=== PATIENT | female | born 1995 | race Caucasian/White ===

== ENCOUNTER 2019-05-31 06:00 | Outpatient (RCR) | payer SELFPAY | END 2019-06-30 00:01 | LOC: SPT 06:00 | PROVIDERS: Family Provider Nurse Practitioner Family; Visit Provider Licensed Practical Nurse | DX: M51.17 Intervertebral disc disorders with radiculopathy, lumbosacral region (principal) | CPT/HCPCS: 97110 ==

== ENCOUNTER → 2020-01-14 12:01 | Outpatient (BNVA) | payer SELFPAY | PROVIDERS: Family Provider Nurse Practitioner Family; Visit Provider Nurse Practitioner Women's Health | DX: N92.6 Irregular menstruation, unspecified (principal); Z12.4 Encounter for screening for malignant neoplasm of cervix; Z11.3 Encounter for screening for infections with a predominantly sexual mode of transmission; N97.9 Female infertility, unspecified | CPT/HCPCS: 84146 ==

== ENCOUNTER → 2020-01-27 08:10 | Outpatient (BNVA) | payer SELFPAY | PROVIDERS: Family Provider Nurse Practitioner Family; Visit Provider Nurse Practitioner Women's Health | DX: N92.6 Irregular menstruation, unspecified (principal) | CPT/HCPCS: 76830 ==

== ENCOUNTER → 2020-05-09 13:26 | Outpatient (BNVA) | payer SELFPAY | PROVIDERS: Family Provider Nurse Practitioner Family; PCP Nurse Practitioner; Visit Provider Nurse Practitioner Women's Health | DX: E28.2 Polycystic ovarian syndrome (principal) | CPT/HCPCS: 84144 ==

== ENCOUNTER → 2020-06-03 10:37 | Outpatient (BNVA) | payer SELFPAY | PROVIDERS: Family Provider Nurse Practitioner Family; PCP Nurse Practitioner; Visit Provider Nurse Practitioner Family | DX: Z20.828 Contact with and (suspected) exposure to other viral communicable diseases (principal); J06.9 Acute upper respiratory infection, unspecified | CPT/HCPCS: 87635 ==

== ENCOUNTER → 2020-06-08 08:02 | Outpatient (BNVA) | payer SELFPAY | PROVIDERS: Family Provider Nurse Practitioner Family; PCP Nurse Practitioner; Visit Provider Nurse Practitioner Women's Health | DX: E28.2 Polycystic ovarian syndrome (principal) | CPT/HCPCS: 84144 ==

== ENCOUNTER → 2020-07-08 08:48 | Outpatient (BNVA) | payer SELFPAY | PROVIDERS: Family Provider Nurse Practitioner Family; PCP Nurse Practitioner; Visit Provider Nurse Practitioner Women's Health | DX: E28.2 Polycystic ovarian syndrome (principal) | CPT/HCPCS: 84144 ==

== ENCOUNTER 2020-07-28 09:25 | Outpatient (CLI) | payer SELFPAY ==
--- NOTE | 2020-07-28 10:00 | FL_ITS ---
WS: [id number] HYSTEROSALPINGOGRAM The cervical opening was cannulated by the studio technician video operator. Then under fluoroscopic guidance, water-solu ble contrast was injected in a retrograde fashion. CLINICAL INFORMATION: E28.2 - Polycystic ovarian syndrome COMPARISON: None. FINDINGS: The uterus fills normally, with no evidence of contour abnormality, filling defect, septum, stricture , mass, or bicornuate configuration. The bilateral uterine tubes are normal and patent with normal sp illage of contrast into the peritoneum. FLUOROSCOPY TIME: 0.5 minutes. FL/FL hysterosalpingography [id number] IMPRESSION: Normal hysterosalpingogram with bilateral spillage into the peritoneum.
[2020-07-28] MEDS: iohexol 300 mg/mL 50 mL Btl VAGINAL (11:16)
== END 2020-07-28 09:26 | disposition home or self-care (01) ==
PROVIDERS: PCP Nurse Practitioner; Visit Provider Obstetrics & Gynecology
DX: E28.2 Polycystic ovarian syndrome (principal)
CPT/HCPCS: 74740

== ENCOUNTER → 2020-09-06 15:42 | Outpatient (BNVA) | payer SELFPAY | PROVIDERS: PCP Nurse Practitioner; Visit Provider Obstetrics & Gynecology | DX: N83.201 Unspecified ovarian cyst, right side (principal) | CPT/HCPCS: 76830 ==

== ENCOUNTER → 2020-10-12 10:50 | Outpatient (BNVA) | payer SELFPAY | PROVIDERS: PCP Nurse Practitioner; Visit Provider Obstetrics & Gynecology | DX: E28.2 Polycystic ovarian syndrome (principal) | CPT/HCPCS: 83520; 84144 ==

== ENCOUNTER → 2020-11-21 08:12 | Outpatient (BNVA) | payer OTHER, SELFPAY | PROVIDERS: PCP Nurse Practitioner; Visit Provider Obstetrics & Gynecology | DX: N97.0 Female infertility associated with anovulation (principal) | CPT/HCPCS: 84144 ==

== ENCOUNTER → 2021-01-03 08:20 | Outpatient (BNVA) | payer OTHER, SELFPAY | PROVIDERS: PCP Nurse Practitioner; Visit Provider Obstetrics & Gynecology | DX: Z32.01 Encounter for pregnancy test, result positive (principal) | CPT/HCPCS: 84702; 86850; 86900 ==

== ENCOUNTER → 2021-01-09 08:18 | Outpatient (BNVA) | payer OTHER, SELFPAY | PROVIDERS: PCP Nurse Practitioner; Visit Provider Obstetrics & Gynecology | DX: Z32.01 Encounter for pregnancy test, result positive (principal); Z20.822 Contact with and (suspected) exposure to COVID-19 | CPT/HCPCS: 84702; 87635 ==

== ENCOUNTER → 2021-01-17 08:15 | Outpatient (BNVA) | payer OTHER, MEDICAID, SELFPAY | PROVIDERS: PCP Nurse Practitioner; Visit Provider Obstetrics & Gynecology | DX: Z32.01 Encounter for pregnancy test, result positive (principal) | CPT/HCPCS: 84702 ==

== ENCOUNTER → 2021-02-28 11:30 | Outpatient (BNVA) | payer OTHER, MEDICAID, SELFPAY | PROVIDERS: PCP Nurse Practitioner; Visit Provider Obstetrics & Gynecology | DX: Z34.90 Encounter for supervision of normal pregnancy, unspecified, unspecified trimester (principal); Z87.59 Personal history of other complications of pregnancy, childbirth and the puerperium | CPT/HCPCS: 80053; 80307; 82570; 82950; 84156; 84315; 84443; 84550; 85027; 86592; 86762; 86803; 86850; 86900; 87086; 87340 ==

== ENCOUNTER → 2021-03-07 11:00 | Outpatient (BNVA) | payer OTHER, MEDICAID, SELFPAY | PROVIDERS: PCP Nurse Practitioner; Visit Provider Obstetrics & Gynecology | DX: Z34.90 Encounter for supervision of normal pregnancy, unspecified, unspecified trimester (principal) | CPT/HCPCS: 84315; 87491; 87591 ==

== ENCOUNTER → 2021-03-13 00:01 | Outpatient (BNVA) | payer OTHER, MEDICAID, SELFPAY | PROVIDERS: PCP Nurse Practitioner; Visit Provider Obstetrics & Gynecology | DX: Z34.80 Encounter for supervision of other normal pregnancy, unspecified trimester (principal) | CPT/HCPCS: 84156 ==

== ENCOUNTER → 2021-04-25 15:50 | Outpatient (BNVA) | payer OTHER, MEDICAID, SELFPAY | PROVIDERS: PCP Nurse Practitioner; Visit Provider Obstetrics & Gynecology | DX: N89.8 Other specified noninflammatory disorders of vagina (principal) | CPT/HCPCS: 87491; 87591 ==

== ENCOUNTER → 2021-05-22 00:01 | Outpatient (BNVA) | payer OTHER, MEDICAID, SELFPAY | PROVIDERS: PCP Nurse Practitioner; Visit Provider Nurse Practitioner | DX: Z20.822 Contact with and (suspected) exposure to COVID-19 (principal); B34.9 Viral infection, unspecified | CPT/HCPCS: 87426 ==

== ENCOUNTER 2021-05-31 17:44 | Outpatient (CLI) | payer OTHER, MEDICAID, SELFPAY ==
[2021-05-31 17:56] VITALS: RESP 18
[2021-05-31 17:57] VITALS: BMI 43.6
[2021-05-31 18:01] VITALS: TEMP 37.3
[2021-05-31 18:02] VITALS: BP 130/72; PULSE 92
[2021-05-31 18:17] VITALS: BP 112/61; PULSE 85
[2021-05-31 18:24] LABS: Actim Prom Negative
[2021-05-31 18:32] VITALS: BP 116/65; PULSE 89
== END 2021-05-31 18:40 | disposition home or self-care (01) ==
LOC: OPOB 17:53 → OBGYN 17:54
PROVIDERS: PCP Nurse Practitioner; Visit Provider Obstetrics & Gynecology
DX: O99.891 Other specified diseases and conditions complicating pregnancy (principal); N89.8 Other specified noninflammatory disorders of vagina
CPT/HCPCS: 84112; 84315; 87086; 99211

== ENCOUNTER 2021-06-21 09:27 | Outpatient (CLI) | payer OTHER, MEDICAID, SELFPAY ==
[2021-06-21 09:48] VITALS: TEMP 36.3
[2021-06-21 09:52] VITALS: BP 113/68; PULSE 97
[2021-06-21 10:05] VITALS: BP 107/62; PULSE 98
[2021-06-21 10:20] VITALS: BP 106/59; PULSE 88
[2021-06-21 10:25] VITALS: BP 106/59; PULSE 88
== END 2021-06-21 10:25 | disposition home or self-care (01) ==
LOC: OPOB 09:31 → OBGYN 09:32
PROVIDERS: PCP Nurse Practitioner; Visit Provider Obstetrics & Gynecology
DX: O26.899 Other specified pregnancy related conditions, unspecified trimester (principal); Z3A.00 Weeks of gestation of pregnancy not specified; R42 Dizziness and giddiness
CPT/HCPCS: 99211

== ENCOUNTER → 2021-06-26 08:27 | Outpatient (BNVA) | payer OTHER, MEDICAID, SELFPAY | PROVIDERS: PCP Nurse Practitioner; Visit Provider Obstetrics & Gynecology | DX: Z34.80 Encounter for supervision of other normal pregnancy, unspecified trimester (principal) | CPT/HCPCS: 82950; 84315; 85027 ==

== ENCOUNTER → 2021-07-10 08:23 | Outpatient (BNVA) | payer OTHER, MEDICAID, SELFPAY | PROVIDERS: PCP Nurse Practitioner; Visit Provider Obstetrics & Gynecology | DX: Z34.90 Encounter for supervision of normal pregnancy, unspecified, unspecified trimester (principal) | CPT/HCPCS: 84315; 87086 ==

== ENCOUNTER → 2021-07-31 13:27 | Outpatient (BNVA) | payer OTHER, MEDICAID, SELFPAY | PROVIDERS: PCP Nurse Practitioner; Visit Provider Obstetrics & Gynecology | DX: Z34.80 Encounter for supervision of other normal pregnancy, unspecified trimester (principal) | CPT/HCPCS: 84315; 87086 ==

== ENCOUNTER 2021-08-01 07:14 | Outpatient (CLI) | payer OTHER, MEDICAID, SELFPAY ==
[2021-08-01] VITALS (9 sets, daily range): BP systolic 91–128; BP diastolic 53–81; PULSE 85–108; RESP 16; TEMP 36.1; BMI 43.7
[2021-08-01] MEDS: ondansetron 2 mg/ML SDV 2 mL 4 MG IVP (08:12)
[2021-08-01 08:44] LABS: Add Urine Culture? Yes; Add Urine Microscopic? YES; Bacteria Urine 1+ /hpf; Bilirubin Urine Neg (Negative); Blood Urine 2+ (Negative); Glucose Urine UA Norm (Normal); Ketones Urine Negative (Negative); Leukocyte Esterase Urine 2+ (Negative); Nitrate Urine Negative (Negative); Protein Urine Neg (Negative); Urine Appearance SL Hazy (CLEAR); Urine Color Yellow (Yellow); Urobilinogen Urine 1 mg/dL (Negative); pH Urine 6.5 (5-7)
[2021-08-01] MEDS: lactated ringers 1,000 ML 999 ML IV (08:56)
[2021-08-01 10:21] LABS: Adenovirus Not Detected (NOT DETECT); Chlamydia Pneumoniae Not Detected (NOT DETECT); Coronavirus 229E,HKU1,NL63,OC4 Not Detected (NOT DETECT); Human Metapneumovirus Not Detected (NOT DETECT); Human Rhinovirus/Enterovirus Not Detected (NOT DETECT); Influenza A Not Detected (NOT DETECT); Influenza A H1 Not Detected (NOT DETECT); Influenza A H1-2009 Not Detected (NOT DETECT); Influenza A H3 Not Detected (NOT DETECT); Influenza B Not Detected (NOT DETECT); Mycoplasma Pneumoniae Not Detected (NOT DETECT); Parainfluenza Virus Type 1 Not Detected (NOT DETECT); Parainfluenza Virus Type 2 Not Detected (NOT DETECT); Parainfluenza Virus Type 3 Not Detected (NOT DETECT); Parainfluenza Virus Type 4 Not Detected (NOT DETECT); Respiratory Syncytial Virus A Not Detected (NOT DETECT); Respiratory Syncytial Virus B Not Detected (NOT DETECT); SARS-COV-2 Detected (NOT DETECT)
--- NOTE | 2021-08-01 10:28 | PC.NURSE ---
Called prescription to [facility] pharmacy to Matthew at this time.
--- NOTE | 2021-08-01 10:41 | PC.NURSE ---
Called Lauren and let her know that she was covid positive.
== END 2021-08-01 10:20 | disposition home or self-care (01) ==
LOC: OPOB 07:21 → OBGYN 07:27
PROVIDERS: PCP Nurse Practitioner; Visit Provider Obstetrics & Gynecology
DX: O21.9 Vomiting of pregnancy, unspecified (principal); Z3A.00 Weeks of gestation of pregnancy not specified; R10.9 Unspecified abdominal pain
CPT/HCPCS: 59025; 81001; 87086; 87635; 99211; J2405

== ENCOUNTER → 2021-08-08 11:35 | Outpatient (BNVA) | payer OTHER, MEDICAID, SELFPAY | PROVIDERS: PCP Nurse Practitioner; Visit Provider Nurse Practitioner Women's Health | DX: Z34.80 Encounter for supervision of other normal pregnancy, unspecified trimester (principal) | CPT/HCPCS: 84315; 87086; 87491; 87591; 87661 ==

== ENCOUNTER 2021-08-22 13:30 | Outpatient (CLI) | payer OTHER, MEDICAID, SELFPAY ==
[2021-08-22] VITALS (9 sets, daily range): BP systolic 99–133; BP diastolic 62–80; PULSE 86–111; RESP 16–17; BMI 43.2
[2021-08-22] MEDS: HYDROcodone-acetaminophen 5-325 mg Tablet 1 TAB PO (14:33)
[2021-08-22] MEDS: famotidine 20 mg Tablet PO (14:33)
== END 2021-08-22 16:20 | disposition home or self-care (01) ==
LOC: OPOB 13:32 → OBGYN 13:33
PROVIDERS: PCP Nurse Practitioner; Visit Provider Obstetrics & Gynecology
DX: O26.899 Other specified pregnancy related conditions, unspecified trimester (principal); Z3A.00 Weeks of gestation of pregnancy not specified; R10.9 Unspecified abdominal pain; M54.9 Dorsalgia, unspecified
CPT/HCPCS: 59025; 99211

== ENCOUNTER → 2021-08-23 10:03 | Outpatient (BNVA) | payer OTHER, MEDICAID, SELFPAY | PROVIDERS: PCP Nurse Practitioner; Visit Provider Obstetrics & Gynecology | DX: Z34.80 Encounter for supervision of other normal pregnancy, unspecified trimester (principal) | CPT/HCPCS: 84315; 87081 ==

== ENCOUNTER → 2021-08-28 10:04 | Outpatient (BNVA) | payer OTHER, MEDICAID, SELFPAY | PROVIDERS: PCP Nurse Practitioner; Visit Provider Obstetrics & Gynecology | DX: Z34.80 Encounter for supervision of other normal pregnancy, unspecified trimester (principal); Z87.59 Personal history of other complications of pregnancy, childbirth and the puerperium | CPT/HCPCS: 82570; 84156; 84315 ==

== ENCOUNTER 2021-08-30 12:57 | Outpatient (CLI) | payer OTHER, MEDICAID, SELFPAY ==
[2021-08-30] VITALS (10 sets, daily range): BP systolic 113–127; BP diastolic 74–83; PULSE 93–124; RESP 18; TEMP 36.1; O2SAT 82–98; BMI 43.6
[2021-08-30 14:31] LABS: Blood Urine Neg (Negative); Glucose Urine UA Norm (Normal); Ketones Urine Negative (Negative); Nitrate Urine Negative (Negative); Protein Urine Trace (Negative); Specific Gravity, Urine 1.025 (1.005-1.030); Urine Appearance Cloudy (CLEAR); Urine Color Dark Yellow (Yellow); pH Urine 5 (5-7)
[2021-08-30 14:32] LABS: Bacteria Urine 1+ /hpf; Bilirubin Urine 1+ (Negative); Calcium Oxalate Crystals Urine 0-4 /hpf; Leukocyte Esterase Urine 2+ (Negative); RBC Urine 25-40 /hpf (0-2); Urobilinogen Urine 4 mg/dL (Negative); WBC Urine 15-25 /hpf (0-5)
== END 2021-08-30 14:50 | disposition home or self-care (01) ==
LOC: OPOB 12:58 → OBGYN 12:59
PROVIDERS: Obstetrics & Gynecology; PCP Nurse Practitioner; Visit Provider Obstetrics & Gynecology
DX: O26.899 Other specified pregnancy related conditions, unspecified trimester (principal); Z3A.00 Weeks of gestation of pregnancy not specified; M54.9 Dorsalgia, unspecified
CPT/HCPCS: 81001

== ENCOUNTER 2021-09-01 13:45 | Inpatient (IN) | payer OTHER, MEDICAID, SELFPAY ==
[2021-09-01] VITALS (189 sets, daily range): BP systolic 95–140; BP diastolic 51–79; PULSE 74–113; RESP 16–17; O2SAT 92–100; BMI 43.9
[2021-09-01 12:00] LABS: Basophils % 0.2 %; Eosinophils # 0.1 10^3/uL (0.0-0.8); Eosinophils % 0.8 %; Hematocrit 35.8 % (37.0-47.0); Hemoglobin 11.2 g/dL (11.5-15.3); Lymphocytes # 1.7 10^3/uL (0.8-4.8); Lymphocytes % 13.4 %; Mean Corpuscular HGB Conc 31.3 g/dL (30.0-36.0); Mean Corpuscular Hemoglobin 25.3 pg (28.0-34.0); Mean Platelet Volume 12.2 fL (7.4-10.4); Monocytes # 0.7 10^3/uL (0.2-0.9); Monocytes % 5.2 %; Neutrophils # 9.94 10^3/uL (1.8-7.7); Neutrophils % 79.8 %; Nucleated Red Blood Cells % 0 %; Platelet Count 270 10^3/cmm (130-400); Red Blood Count 4.42 10^6/uL (4.1-5.3); Red Cell Distribution Width 15.4 % (12.1-15.1); White Blood Count 12.5 10^3/uL (4.0-10.0)
[2021-09-01 12:22] LABS: Alanine Aminotransferase 100 U/L (0-33); Albumin Level 3.4 g/dL (3.5-5.2); Alkaline Phosphatase 245 IU/L (35-105); Anion Gap 17.1 (5-19); Aspartate Amino Transferase 165 U/L (0-32); Blood Urea Nitrogen 7 mg/dL (6-20); Calcium 8.9 mg/dL (8.5-10.5); Carbon Dioxide 19 mmol/L (22-29); Chloride 100 mmol/L (98-107); Globulin 3.5 g/dL (1.3-4.6); Glomerular Filtration Rate 150.3 mL/min (90-130); Glucose 109 mg/dL (65-115); Osmolality Calculated 273 mOsm/kg (285-295); Potassium 4.1 mmol/L (3.5-5.1); Sodium 132 mmol/L (136-145); Total Bilirubin 0.7 mg/dL (0.15-1.2); Total Protein 6.9 g/dL (6.6-8.7)
[2021-09-01 12:27] LABS: Urine Creatinine 79 mg/dL (28-217); Urine Protein Random 18 mg/dL
[2021-09-01 12:29] LABS: UPRO/UCREAT Ratio 0.23 mg/mg CR
[2021-09-01 12:39] LABS: Blood Urine Neg (Negative); Glucose Urine UA Norm (Normal); Ketones Urine Negative (Negative); Nitrate Urine Negative (Negative); Protein Urine Neg (Negative); Urine Appearance Hazy (CLEAR); Urine Color Yellow (Yellow); pH Urine 6.5 (5-7)
[2021-09-01 12:40] LABS: Add Urine Culture? Yes; Bacteria Urine TRACE /hpf; Bilirubin Urine Neg (Negative); Leukocyte Esterase Urine 2+ (Negative); RBC Urine 0-4 /hpf (0-2); Urobilinogen Urine 1 mg/dL (Negative); WBC Urine 25-40 /hpf (0-5)
[2021-09-01] MEDS: dextrose 5%-lactated ringers 1,000 ML 125 ML IV (13:37)
[2021-09-01] MEDS: magnesium sulfate premix 4 GM/100 ML PREMIX IV (13:39)
[2021-09-01] MEDS: magnesium sulfate premix 20 GM/500 ML BAG IV ×2 (13:59→23:06)
--- NOTE | 2021-09-01 14:06 | PM.OPHPUD ---
Labor & Delivery H&P Update Date of Procedure: September 01, 2021 Date H&P Performed: 08/28/21 H&P update information: I have reviewed H&P completed within last 30 days, I have examined patient prior to procedure and Changes to prior documentation as noted here Changes to previous documentation: iup at 38 weeks. Patient presents with complaints of not feeling well and a persistent headache. Her liver enzymes were found to be high. She will be admitted for severe preeclampsia and started on magnesium sulfate. Admission Diagnosis: Related Problem List Diagnoses (1) macrosomia affecting management of mother, antepartum: (2) chromosome abnormality, antepartum: (3) History of gestational hypertension: (4) Supervision of other normal : (5) Severe preeclampsia:
[2021-09-01] MEDS: oxytocin 30 UNIT/500 ML BAG IV (14:13)
--- NOTE | 2021-09-01 16:14 | P.ANESASSM_ITS ---
Pre-Anesthetic Assessment Height/Weight: Height 1.63 m Weight 116.12 kg Pulse Resp BP Pulse Ox 84 17 121/70 100 09/01/21 16:08 09/01/21 12:33 09/01/21 15:59 09/01/21 16:08 Familial anesthetic complications: None Was Beta Mukund taken within 24 hours: N/A Was Clonidine taken within 24 hours: N/A Social No alcohol and No tobacco Exam alert, oriented x 3, clear to auscultation bilaterally and regular rate & rhythm Airway Submandibular: within normal limits Cervical ROM: within normal limits Mallampati: Class II Dentition: full History/ROS No significant history except as noted Pulmonary COVID during CV/HEM Pre E Anesthetic Plan ASA status: 2 Anesthesia: Regional (specify below) (Labor Epidural) Risk of > 500 ml blood loss (7ml/kg in children): No Medications/Allergies Home Medications Medication Instructions Recorded Confirmed Last Taken Type acetaminophen 325 mg capsule 325 mg PO QID PRN 10/21/19 08/28/21 09/01/21 09:00 History (Tylenol) aspirin 81 mg tablet,delayed 81 mg PO DAILY #90 tab 02/28/21 08/28/21 09/01/21 09:00 Rx release prenat.vits,haim,myx-nexb-ncxtn 1 tab PO DAILY 02/28/21 08/28/21 09/01/21 09:00 History ferrous sulfate 325 mg (65 mg 325 mg PO DAILY #90 tab 06/27/21 08/28/21 08/30/21 21:00 Rx iron) tablet,delayed release breast pump (Pump In Style #1 ea 07/10/21 08/28/21 Unknown Rx Advanced) promethazine 25 mg tablet 25 mg PO TID PRN #10 tab 09/01/21 Unknown Rx Allergies Allergy/AdvReac Type Severity Reaction Status Date / Time Penicillins Allergy Intermediate Swelling Verified 08/28/21 10:21 in hands and lips---can take Keflex sulfamethoxazole Allergy Intermediate swell, Verified 08/28/21 10:21 [From Bactrim] hands and lips trimethoprim [From Bactrim] Allergy Intermediate swell, Verified 08/28/21 10:21 hands and lips Current Medications Generic Name Dose Route Start Last Admin Trade Name Freq PRN Reason Stop Dose Admin Dextrose/Lactated Ringer's 1,000 mls @ 125 mls/hr 09/01/21 12:45 09/01/21 13:37 Dextrose 5%-Lactated Ringers IV 125 mls/hr .Q8H PEPE Administration Magnesium Sulfate 20 gm in 500 mls @ 50 mls/hr 09/01/21 13:30 09/01/21 13:59 Magnesium Sulfate Premix IV 50 mls/hr .Q10H PEPE Administration Oxytocin 30 unit in 500 mls @ 1 mls/hr 09/01/21 13:30 09/01/21 15:30 Pitocin IV 6 milliunit/min .Q24H PEPE 6 mls/hr Titration Protocol 1 MILLIUNIT/MIN PFS Anesthesia Medical History No pertinent past medical history Denies diabetes, asthma, hypertension, seizures, DVT/PE PMD: [place] PCOS (polycystic ovarian syndrome) Diagnosed in 2019 with irregular cycles and ultrasound. Surgical History History of cholecystectomy (2016) Laparoscopic procedure [place] [facility] [place] Rojo. Family History Father Diabetes Hyperlipidemia Hypertension Grandmother Heart disease Maternal grandmother Ovarian cancer Paternal, age at diagnosis unknown Denies family history of Colon cancer Breast cancer Uterine cancer Thyroid condition Stroke Female Reproductive History : 2 Data Anesthesia : 09/01/21 11:50 09/01/21 11:50 Short CBC 09/01/21 Range/Units 11:50 WBC 12.5 H (4.0-10.0) 10^3/uL Hgb 11.2 L (11.5-15.3) g/dL Hct 35.8 L (37.0-47.0) % MCV 81.0 (81-99) fl Plt Count 270 (130-400) 10^3/cmm Neut % (Auto) 79.8 % Neut # (Auto) 9.94 H (1.8-7.7) 10^3/uL BMP 09/01/21 11:50 Sodium 132 L Potassium 4.1 Chloride 100 Carbon Dioxide 19 L BUN 7 Creatinine 0.5 Glucose 109 Calcium 8.9 Liver Function 09/01/21 Range/Units 11:50 Total Bilirubin 0.7 (0.15-1.2) mg/dL AST 165 H (0-32) U/L ALT 100 H (0-33) U/L Alkaline Phosphatase 245 H (35-105) IU/L Albumin 3.4 L (3.5-5.2) g/dL Urine 09/01/21 Range/Units 11:50 Urine Color Yellow (Yellow) Urine Appearance Hazy A (CLEAR) Urine pH 6.5 (5-7) Ur Specific Felt 1.010 (1.005-1.030) Urine Protein Neg (Negative) Urine Glucose (UA) Norm (Normal) Urine Ketones Negative (Negative) Urine Nitrate Negative (Negative) Urine Bilirubin Neg (Negative) Ur Leukocyte Esterase 2+ H (Negative) Urine RBC 0-4 H (0-2) /hpf Urine WBC 25-40 H (0-5) /hpf Cardiac Studies: No Data to Display
[2021-09-01] MEDS: acetaminophen 325 mg Tablet 650 MG PO (17:35)
[2021-09-01 19:58] LABS: Alanine Aminotransferase 109 U/L (0-33); Albumin Level 3.7 g/dL (3.5-5.2); Alkaline Phosphatase 261 IU/L (35-105); Aspartate Amino Transferase 193 U/L (0-32); Blood Urea Nitrogen 6 mg/dL (6-20); Calcium 8.4 mg/dL (8.5-10.5); Carbon Dioxide 20 mmol/L (22-29); Chloride 98 mmol/L (98-107); Globulin 3.8 g/dL (1.3-4.6); Glomerular Filtration Rate 150.3 mL/min (90-130); Glucose 82 mg/dL (65-115); Osmolality Calculated 273 mOsm/kg (285-295); Sodium 133 mmol/L (136-145); Total Bilirubin 0.8 mg/dL (0.15-1.2); Total Protein 7.5 g/dL (6.6-8.7)
[2021-09-01 19:59] LABS: Anion Gap 18.8 (5-19)
[2021-09-01 20:00] LABS: Magnesium Level (OB Only) 4.6 mg/dL (5.0-7.5); Potassium 3.8 mmol/L (3.5-5.1)
[2021-09-01] MEDS: miSOPROStol 100 mcg tablet 25 MCG VAGINAL (23:16)
[2021-09-01] MEDS: promethazine 25 mg/mL SDV 1 mL IM (23:17)
[2021-09-01] MEDS: morphine 4 mg/mL SDV 1 mL 8 MG IM (23:17)
[2021-09-02] VITALS (269 sets, daily range): BP systolic 86–166; BP diastolic 50–89; PULSE 65–102; RESP 16–19; TEMP 36.1–36.8; O2SAT 94–100
[2021-09-02 02:48] LABS: Magnesium Level (OB Only) 6.7 mg/dL (5.0-7.5)
[2021-09-02] MEDS: miSOPROStol 100 mcg tablet 25 MCG VAGINAL ×2 (04:08→09:24)
[2021-09-02] MEDS: magnesium sulfate premix 20 GM/500 ML BAG IV ×2 (06:01→18:30)
[2021-09-02] MEDS: dextrose 5%-lactated ringers 1,000 ML 50 ML IV (08:12)
[2021-09-02 08:20] LABS: Basophils % 0.2 %; Eosinophils % 0.2 %; Hematocrit 37.5 % (37.0-47.0); Hemoglobin 11.7 g/dL (11.5-15.3); Lymphocytes # 1.4 10^3/uL (0.8-4.8); Lymphocytes % 11.3 %; Mean Corpuscular HGB Conc 31.2 g/dL (30.0-36.0); Mean Corpuscular Hemoglobin 25.1 pg (28.0-34.0); Mean Corpuscular Volume 80.3 fl (81-99); Mean Platelet Volume 11.9 fL (7.4-10.4); Monocytes # 0.5 10^3/uL (0.2-0.9); Monocytes % 4.3 %; Neutrophils # 10.34 10^3/uL (1.8-7.7); Neutrophils % 83.1 %; Nucleated Red Blood Cells % 0 %; Platelet Count 274 10^3/cmm (130-400); Red Blood Count 4.67 10^6/uL (4.1-5.3); Red Cell Distribution Width 15.6 % (12.1-15.1); White Blood Count 12.4 10^3/uL (4.0-10.0)
[2021-09-02 08:36] LABS: Magnesium Level (OB Only) 7.1 mg/dL (5.0-7.5)
[2021-09-02] MEDS: acetaminophen 325 mg Tablet 650 MG PO (13:21)
[2021-09-02] MEDS: fentaNYL 50 mcg/mL INJ 2mL 25 MCG IVP (13:48)
[2021-09-02] MEDS: lactated ringers 1,000 ML 999 ML IV (13:55)
[2021-09-02 13:56] LABS: Basophils % 0.2 %; Eosinophils % 0.3 %; Hematocrit 36.2 % (37.0-47.0); Hemoglobin 11.5 g/dL (11.5-15.3); Lymphocytes # 1.5 10^3/uL (0.8-4.8); Lymphocytes % 10.6 %; Mean Corpuscular HGB Conc 31.8 g/dL (30.0-36.0); Mean Corpuscular Hemoglobin 25.7 pg (28.0-34.0); Mean Corpuscular Volume 80.8 fl (81-99); Mean Platelet Volume 12.2 fL (7.4-10.4); Monocytes # 0.7 10^3/uL (0.2-0.9); Monocytes % 4.7 %; Neutrophils # 11.77 10^3/uL (1.8-7.7); Neutrophils % 83.4 %; Nucleated Red Blood Cells % 0 %; Platelet Count 274 10^3/cmm (130-400); Red Blood Count 4.48 10^6/uL (4.1-5.3); Red Cell Distribution Width 15.6 % (12.1-15.1); White Blood Count 14.1 10^3/uL (4.0-10.0)
[2021-09-02 14:18] LABS: Alanine Aminotransferase 147 U/L (0-33); Albumin Level 3.5 g/dL (3.5-5.2); Alkaline Phosphatase 261 IU/L (35-105); Anion Gap 18.8 (5-19); Aspartate Amino Transferase 313 U/L (0-32); Blood Urea Nitrogen 5 mg/dL (6-20); Calcium 7.3 mg/dL (8.5-10.5); Carbon Dioxide 20 mmol/L (22-29); Chloride 99 mmol/L (98-107); Globulin 3.7 g/dL (1.3-4.6); Glomerular Filtration Rate 121.8 mL/min (90-130); Glucose 118 mg/dL (65-115); Osmolality Calculated 276 mOsm/kg (285-295); Potassium 3.8 mmol/L (3.5-5.1); Sodium 134 mmol/L (136-145); Total Bilirubin 1.1 mg/dL (0.15-1.2); Total Protein 7.2 g/dL (6.6-8.7)
[2021-09-02 14:31] LABS: Magnesium Level (OB Only) 8.6 mg/dL (5.0-7.5)
[2021-09-02] MEDS: metoclopramide 5 mg/mL SDV 2 mL 10 MG IVP (14:43)
[2021-09-02] MEDS: citric acid-sodium citrate 30 mL UDC PO (14:43)
[2021-09-02] MEDS: famotidine 20 mg/2 mL INJ IVP (14:43)
--- NOTE | 2021-09-02 14:43 | P.PN_ITS ---
Subjective Subjective: The patient has had pitocin all day yesterday and three doses of cytotec overnight and today. She had AROM with clear fluid. She is having adequate contractions. she is becoming more uncomfortable and requesting an epidural. Her labs returned and her liver enzymes are now 313 and her mag level has increased from 7.1 to 8.6, in spite of decreasing the dose back down to 2 mg/hour. We discussed her getting an epidural and then evaluating in 2 hours. She would prefer to have a now. She has known macrosomia with this . She feels very ill and just wants to have this delivery over. We will proceed with . status is overall very reassuring with good variability and accelerations. Vitals/I&O/Wt Last Vital Signs Temp 97.9 F 09/02/21 13:00 Pulse 89 09/02/21 14:38 Resp 19 H 09/02/21 13:48 BP 121/76 09/02/21 14:29 Pulse Ox 97 09/02/21 14:38 09/01/21 09/02/21 09/02/21 22:59 06:59 14:59 Intake Total 1428.417 / 1589.117 667.583 / 2256.700 163.75 / 163.75 Output Total 547 / 547 463 / 1010 539 / 539 Balance 881.417 / 1042.117 204.583 / 1246.700 -375.25 / -375.25 Weight last 48 hrs Weight 256 lb Weight 256 lb Physical Exam Urinary Catheter Management: Brown: Cath Placed During This Visit: yes Reason for Continuing Indwelling Catheter: Accurate Measurement of Urinary Output in Critically Ill Patients Urinary Catheter Date of Insertion: 09/01/21 Urinary Catheter Time of Insertion: 14:35 Data : 09/02/21 13:50 09/02/21 13:50 Micro: Microbiology 09/01/21 11:50 Urine Culture - Preliminary Urine,Clean Catch Attestations Medical Necessity Statement*: she will be here over 2 midnights. Coding Level of Care Code Acute Senior Geotechnical Engineer for Nolberto Villafana
--- NOTE | 2021-09-02 16:07 | PM.OP ---
Operative Report Date of procedure: September 02, 2021 Pre-op diagnosis: failure to progress in labor, worsening severe preeclampsia Post-op diagnosis: same Post-op findings: term male in the cephalic presentation Procedure done: primary Specimens removed/disposition: placenta Surgeon: Janna Thornton Anesthesia: Other (spinal) Estimated blood loss (mL): 300 IV fluids (mL): 1,200 Urine output (mL): 100 Complications: none Findings: term male in the cephalic presentation. Normal appearing uterus, tubes and ovaries Condition: stable Disposition: floor Procedure: The patient was taken to the operating room where spinal anesthesia was administered and found to be adequate. She was prepped and draped in the normal sterile fashion in the dorsal supine position with a leftward tilt. A Pfannenstiel skin incision was made and carried down to the underlying layer of fascia. The fascia was nicked in the midline and extended laterally with the Melgar scissors. The fascia was then tented up and the rectus muscles dissected off sharply. The rectus muscles were and the peritoneum entered bluntly with the digit. The peritoneal incision was extended superiorly and inferiorly with good visualization of the bladder. The Kalia O retractor was placed. It was clear of any bowel or omentum. The bladder flap was created sharply with the Metzenbaum scissors. A low transverse uterine incision was made and carried down to the bag of water. The bag of water was ruptured and the uterine incision extended cephalocaudad. The scalp was grasped and brought through the incision. The nose and mouth were bulb suctioned. The shoulders and body delivered atraumatically. The baby was allowed to rest, while being dried, for 1 minute and then the cord was clamped and cut. The baby was handed to the waiting group rooms coordinator. The placenta was delivered by expression. The uterus was exteriorized and cleared of all clots and debris. The uterine incision was closed with 0 Vicryl in a running fashion. A second imbricating layer of 3-0 Monocryl was used to close the uterus. The bladder flap was closed with 3-0 Monocryl. There was excellent hemostasis. The Kalia O retractor was removed. The uterus was returned to the abdomen. The peritoneum was closed with 3-0 Monocryl, incorporating the rectus muscle. The fascia was closed with 0 Vicryl in 2 separate sutures overlapping in the midline. The skin was closed with absorbable bianka. Apgars on baby 8 at 1 minute and 9 at 5 minutes. weight 9 pounds 5 ounces. Mother and baby were stable post delivery.
[2021-09-02 18:08] LABS: Magnesium Level (OB Only) 3.7 mg/dL (5.0-7.5)
[2021-09-02] MEDS: ketorolac 30 mg/mL INJ IVP (22:32)
--- NOTE | 2021-09-02 23:27 | ANE.PACU2 ---
Inpatient post-anesthesia follow up: Airway intact: Yes Vital signs: Temperature 98.1 F Pulse Rate 74 Respiratory Rate 18 Blood Pressure 112/89 Pulse Oximetry 98 Oxygen Delivery Me thod Room Air Oxygen Flow Rate Fraction of Inspir ed Oxygen Hydration adequate: Yes Nausea and vomiting: No Pain level: 2 Mental status: Baseline
[2021-09-02] MEDS: dextrose 5%-lactated ringers 1,000 ML 75 ML IV (23:34)
[2021-09-03] VITALS (11 sets, daily range): BP systolic 98–113; BP diastolic 61–74; PULSE 70–96; RESP 16; TEMP 36.6–36.9; O2SAT 94–99
[2021-09-03 02:19] LABS: Alanine Aminotransferase 114 U/L (0-33); Albumin Level 2.7 g/dL (3.5-5.2); Alkaline Phosphatase 192 IU/L (35-105); Blood Urea Nitrogen 4 mg/dL (6-20); Calcium 6.6 mg/dL (8.5-10.5); Carbon Dioxide 23 mmol/L (22-29); Chloride 102 mmol/L (98-107); Globulin 2.8 g/dL (1.3-4.6); Glomerular Filtration Rate 150.3 mL/min (90-130); Glucose 77 mg/dL (65-115); Osmolality Calculated 280 mOsm/kg (285-295); Sodium 137 mmol/L (136-145); Total Bilirubin 0.7 mg/dL (0.15-1.2); Total Protein 5.5 g/dL (6.6-8.7)
[2021-09-03 02:28] LABS: Anion Gap 15.6 (5-19); Aspartate Amino Transferase 227 U/L (0-32); Magnesium Level (OB Only) 4.5 mg/dL (5.0-7.5); Potassium 3.6 mmol/L (3.5-5.1)
[2021-09-03] MEDS: ketorolac 30 mg/mL INJ IVP ×2 (04:26→10:46)
[2021-09-03 04:50] LABS: Hematocrit 32.1 % (37.0-47.0); Hemoglobin 10.1 g/dL (11.5-15.3); Mean Corpuscular HGB Conc 31.5 g/dL (30.0-36.0); Mean Corpuscular Hemoglobin 25.6 pg (28.0-34.0); Mean Corpuscular Volume 81.3 fl (81-99); Mean Platelet Volume 12.2 fL (7.4-10.4); Platelet Count 231 10^3/cmm (130-400); Red Blood Count 3.95 10^6/uL (4.1-5.3); Red Cell Distribution Width 15.4 % (12.1-15.1); White Blood Count 11.6 10^3/uL (4.0-10.0)
[2021-09-03 06:54] LABS: Chloride 102 mmol/L (98-107); Globulin 2.7 g/dL (1.3-4.6); Glucose 84 mg/dL (65-115); Sodium 137 mmol/L (136-145); Total Bilirubin 0.7 mg/dL (0.15-1.2)
[2021-09-03] MEDS: magnesium sulfate premix 20 GM/500 ML BAG IV (07:45)
[2021-09-03 08:41] LABS: Alanine Aminotransferase 108 U/L (0-33); Albumin Level 2.8 g/dL (3.5-5.2); Alkaline Phosphatase 199 IU/L (35-105); Blood Urea Nitrogen 5 mg/dL (6-20); Calcium 6.8 mg/dL (8.5-10.5); Carbon Dioxide 21 mmol/L (22-29); Osmolality Calculated 280 mOsm/kg (285-295); Total Protein 5.5 g/dL (6.6-8.7)
[2021-09-03 08:43] LABS: Anion Gap 17.9 (5-19); Magnesium Level (OB Only) 4.5 mg/dL (5.0-7.5); Potassium 3.9 mmol/L (3.5-5.1)
[2021-09-03 08:44] LABS: Aspartate Amino Transferase 195 U/L (0-32)
[2021-09-03] MEDS: prenatal vitamin Capsule 1 CAP PO (09:11)
[2021-09-03] MEDS: docusate sodium 100 mg Capsule PO ×2 (09:11→19:10)
[2021-09-03 10:08] LABS: Glomerular Filtration Rate 150.3 mL/min (90-130)
--- NOTE | 2021-09-03 10:41 | PM.PN ---
Subjective Subjective: The patient is improving this morning. She is having good diuresis. Her liver enzymes and starting to trend down as well. She had a rash form on her abdomen, likely from the OR prep. She has washed it off and the rash has improved. She is tolerating a clear liquid diet. that is all she is hungry for at this time. She continues to have mag sulfate infusing at 2 grams per hour. Her last mag level was 4.5 Vitals/I&O/Wt Last Vital Signs Temp 98.3 F 09/03/21 01:45 Pulse 70 09/03/21 01:45 Resp 16 09/03/21 01:45 BP 101/62 09/03/21 01:45 Pulse Ox 94 09/03/21 01:45 09/02/21 09/03/21 09/03/21 22:59 06:59 14:59 Intake Total 1765 / 2242.583 805 / 3047.583 240 / 240 Output Total 1315 / 1934 595 / 2529 500 / 500 Balance 450 / 308.583 210 / 518.583 -260 / -260 Weight last 48 hrs Weight 256 lb Weight 256 lb Physical Exam Const: COMMON NORMALS: no acute distress, patient oriented x3, no limitations, alert and well nourished GENERAL APPEARANCE: cooperative, comfortable, well kempt and well developed ORIENTATION/CONSCIOUSNESS: Yes awake, Yes oriented to person, Yes oriented to place and Yes oriented to time Resp: COMMON NORMALS: normal respiratory effort EFFORT & INSPECTION: Yes able to speak in complete sentences GI: COMMON NORMALS: Soft to palpation and non-tender PALPATION: Yes Soft to palpation Extremity: COMMON NORMALS: no calf tenderness Neuro: COMMON NORMALS: patient oriented x3 SENSORIUM/ORIENTATION: Yes alert, Yes oriented to person, Yes oriented to place and Yes oriented to time Psych: APPEARANCE: Yes well kempt Urinary Catheter Management: Brown: Cath Placed During This Visit: yes Reason for Continuing Indwelling Catheter: Accurate Measurement of Urinary Output in Critically Ill Patients Urinary Catheter Date of Insertion: 09/01/21 Urinary Catheter Time of Insertion: 14:35 Data : 09/03/21 04:30 09/03/21 06:15 Micro: Microbiology 09/01/21 11:50 Urine Culture - Preliminary Urine,Clean Catch Attestations Medical Necessity Statement*: She will be her greater than 2 midnights. Coding Level of Care Code Acute Corrosion Control Engineer for Nolberto Villafana
--- NOTE | 2021-09-03 12:00 | PC.NURSE ---
1115 Pt voices was being treated for UTI this past week. Reported this to Dr. Thornton. Dr. Thornton ordered a urine culture. The specimen was obtained and sent to lab.
[2021-09-03 14:52] LABS: Magnesium Level (OB Only) 4.7 mg/dL (5.0-7.5)
[2021-09-03] MEDS: dextrose 5%-lactated ringers 1,000 ML 75 ML IV (15:23)
[2021-09-03] MEDS: HYDROcodone-acetaminophen 5-325 mg Tablet PO ×2 (17:13→23:18)
[2021-09-03] MEDS: hydrocortisone 2.5% cream 28 gm 1 APPLIC TOPICAL (18:55)
[2021-09-03] MEDS: ibuprofen 800 mg tablet PO (19:10)
--- NOTE | 2021-09-04 00:11 | PC.NURSE ---
Patient escorted to nursery due to severe weather warning.
[2021-09-04 03:50] VITALS: BP 114/80; PULSE 74; RESP 16; TEMP 36.6
[2021-09-04] MEDS: HYDROcodone-acetaminophen 5-325 mg Tablet PO ×2 (04:38→09:31)
[2021-09-04 06:03] LABS: Alanine Aminotransferase 79 U/L (0-33); Albumin Level 2.9 g/dL (3.5-5.2); Alkaline Phosphatase 172 IU/L (35-105); Anion Gap 14.7 (5-19); Aspartate Amino Transferase 89 U/L (0-32); Blood Urea Nitrogen 6 mg/dL (6-20); Calcium 7.6 mg/dL (8.5-10.5); Carbon Dioxide 23 mmol/L (22-29); Chloride 105 mmol/L (98-107); Globulin 2.8 g/dL (1.3-4.6); Glomerular Filtration Rate 121.8 mL/min (90-130); Glucose 71 mg/dL (65-115); Osmolality Calculated 284 mOsm/kg (285-295); Potassium 3.7 mmol/L (3.5-5.1); Sodium 139 mmol/L (136-145); Total Bilirubin 0.5 mg/dL (0.15-1.2); Total Protein 5.7 g/dL (6.6-8.7)
[2021-09-04] MEDS: prenatal vitamin Capsule 1 CAP PO (09:30)
[2021-09-04] MEDS: docusate sodium 100 mg Capsule PO (09:30)
[2021-09-04] MEDS: ibuprofen 800 mg tablet PO ×2 (09:30→15:26)
[2021-09-04] MEDS: fluconazole 100 mg Tablet 200 MG PO (09:31)
[2021-09-04 10:49] VITALS: BP 116/82; PULSE 98; RESP 16; TEMP 37.2; O2SAT 97
[2021-09-04] MEDS: lanolin oint 7 gm 1 APPLIC TOPICAL (12:45)
[2021-09-04] MEDS: hydrocortisone 2.5% cream 28 gm 1 APPLIC TOPICAL (12:45)
--- NOTE | 2021-09-04 15:46 | P.DS_ITS ---
Discharge Providers Date of Admission: 09/01/21 13:45 Date of Discharge: September 04, 2021 Attending Provider at Admission: Janna Thornton Md. Attending Provider at Discharge: Jessica Guerrero MD Primary Care Provider: LUDMILA Armenta Diagnoses at Discharge Discharge Diagnosis (1) macrosomia affecting management of mother, antepartum: Status: Acute (2) chromosome abnormality, antepartum: Status: Acute (3) History of gestational hypertension: Status: Acute (4) Supervision of other normal : Status: Acute (5) Severe preeclampsia: Status: Acute Reason for Visit Reason for Visit: headaches, blurry vision Hospital Course Hospital Course The patient was admitted with severe preeclampsia. She had a headache and increased liver enzymes. She was started on Mag sulfate. She ultimately underwent a primary for CPD and macrosomia. She continued with magnesium sulfate for 24 hours post operatively. She had a rash on POD#1 on her belly. It was improved with steroid cream. On POD#2, she noticed a rash on her buttocks and thighs. Steroid cream was applied to these areas as well. She was doing well postoperativley otherwise and all of her other symptoms had resolved. Her liver enzymes continue to trend down. Physical Exam Const: COMMON NORMALS: no acute distress, patient oriented x3, no limitations, healthy appearing, alert and well nourished GENERAL APPEARANCE: cooperative, comfortable, well kempt and well developed ORIENTATION/CONSCIOUSNESS: Yes awake, Yes oriented to person and Yes oriented to time Resp: COMMON NORMALS: normal respiratory effort EFFORT & INSPECTION: Yes able to speak in complete sentences GI: COMMON NORMALS: Soft to palpation and non-tender PALPATION: Yes Soft to palpation Extremity: COMMON NORMALS: no calf tenderness Neuro: COMMON NORMALS: patient oriented x3 SENSORIUM/ORIENTATION: Yes alert, Yes oriented to person and Yes oriented to time Psych: APPEARANCE: Yes well kempt Urinary Catheter Management: Brown: Cath Placed During This Visit: yes, but has since been removed by the nurse Reason for Continuing Indwelling Catheter: Decision to DC Catheter Urinary Catheter Date of Insertion: 09/01/21 Urinary Catheter Time of Insertion: 14:35 Date Urinary Catheter Removed: 09/03/21 Time Urinary Catheter Discontinued: 18:00 Discharge Data Studies Completed and Pending Pending at discharge Category Date Time Status Urine Culture Stat Lab 09/03/21 11:24 Results Laboratory Results WBC 11.6 10^3/uL (4.0-10.0) H 09/03/21 04:30 RBC 3.95 10^6/uL (4.1-5.3) L 09/03/21 04:30 Hgb 10.1 g/dL (11.5-15.3) L 09/03/21 04:30 Hct 32.1 % (37.0-47.0) L 09/03/21 04:30 MCV 81.3 fl (81-99) 09/03/21 04:30 MCH 25.6 pg (28.0-34.0) L 09/03/21 04:30 MCHC 31.5 g/dL (30.0-36.0) 09/03/21 04:30 RDW 15.4 % (12.1-15.1) H 09/03/21 04:30 Plt Count 231 10^3/cmm (130-400) 09/03/21 04:30 MPV 12.2 fL (7.4-10.4) H 09/03/21 04:30 Neut % (Auto) 83.4 % 09/02/21 13:50 Lymph % (Auto) 10.6 % 09/02/21 13:50 Bullock % (Auto) 4.7 % 09/02/21 13:50 Eos % (Auto) 0.3 % 09/02/21 13:50 Baso % (Auto) 0.2 % 09/02/21 13:50 Neut # (Auto) 11.77 10^3/uL (1.8-7.7) H 09/02/21 13:50 Lymph # (Auto) 1.5 10^3/uL (0.8-4.8) 09/02/21 13:50 Bullock # (Auto) 0.7 10^3/uL (0.2-0.9) 09/02/21 13:50 Eos # (Auto) 0.0 10^3/uL (0.0-0.8) 09/02/21 13:50 Baso # (Auto) 0.0 10^3/uL (0.0-0.1) 09/02/21 13:50 Nucleated RBC % (auto) 0 % 09/02/21 13:50 Nucleated RBCs # 0.0 /100WBC 09/02/21 13:50 Sodium 139 mmol/L (136-145) 09/04/21 05:23 Potassium 3.7 mmol/L (3.5-5.1) 09/04/21 05:23 Chloride 105 mmol/L (98-107) 09/04/21 05:23 Carbon Dioxide 23 mmol/L (22-29) 09/04/21 05:23 Anion Gap 14.7 (5-19) 09/04/21 05:23 BUN 6 mg/dL (6-20) 09/04/21 05:23 Creatinine 0.6 mg/dL (0.5-0.9) 09/04/21 05:23 GFR Calculation 121.8 mL/min (90-130) 09/04/21 05:23 Glucose 71 mg/dL (65-115) 09/04/21 05:23 Calculated Osmolality 284 mOsm/kg (285-295) L 09/04/21 05:23 Uric Acid 5.0 mg/dL (2.4-5.7) 09/01/21 11:50 Calcium 7.6 mg/dL (8.5-10.5) L 09/04/21 05:23 Magnesium 4.7 mg/dL (5.0-7.5) L* 09/03/21 12:20 Total Bilirubin 0.5 mg/dL (0.15-1.2) 09/04/21 05:23 AST 89 U/L (0-32) H 09/04/21 05:23 ALT 79 U/L (0-33) H 09/04/21 05:23 Alkaline Phosphatase 172 IU/L (35-105) H 09/04/21 05:23 Total Protein 5.7 g/dL (6.6-8.7) L 09/04/21 05:23 Albumin 2.9 g/dL (3.5-5.2) L 09/04/21 05:23 Globulin 2.8 g/dL (1.3-4.6) 09/04/21 05:23 Urine Color Yellow (Yellow) 09/01/21 11:50 Urine Appearance Hazy (CLEAR) A 09/01/21 11:50 Urine pH 6.5 (5-7) 09/01/21 11:50 Ur Specific [place] 1.010 (1.005-1.030) 09/01/21 11:50 Urine Protein Neg (Negative) 09/01/21 11:50 Urine Glucose (UA) Norm (Normal) 09/01/21 11:50 Urine Ketones Negative (Negative) 09/01/21 11:50 Urine Blood Neg (Negative) 09/01/21 11:50 Urine Nitrate Negative (Negative) 09/01/21 11:50 Urine Bilirubin Neg (Negative) 09/01/21 11:50 Urine Urobilinogen 1 mg/dL (Negative) H 09/01/21 11:50 Ur Leukocyte Esterase 2+ (Negative) H 09/01/21 11:50 Urine RBC 0-4 /hpf (0-2) H 09/01/21 11:50 Urine WBC 25-40 /hpf (0-5) H 09/01/21 11:50 Ur Squamous Epith Cells 5-10 /hpf (0-5) H 09/01/21 11:50 Amorphous Sediment Not Reportable 09/01/21 11:50 Urine Bacteria Trace /hpf (NONE) 09/01/21 11:50 U Random Total Protein 18 mg/dL 09/01/21 11:50 Urine Creatinine 79 mg/dL (28-217) 09/01/21 11:50 Protein/Creatinin Ratio 0.23 mg/mg CR 09/01/21 11:50 Vitals Last Vital Signs Temp 98.9 F 09/04/21 10:49 Pulse 98 09/04/21 10:49 Resp 16 09/04/21 10:49 BP 116/82 09/04/21 10:49 Pulse Ox 97 09/04/21 10:49 Discharge Plan Discharge Patient Disposition: Home Condition: Stable Prescriptions: New docusate sodium 100 mg Capsule 100 mg PO BID Qty: 60 0RF ferrous sulfate 325 mg (65 mg iron) Tablet,Delayed Release (Dr/Ec) 325 mg PO BIDWM Qty: 60 3RF fluconazole 100 mg Tablet 200 mg PO DAILY Qty: 3 0RF ibuprofen 800 mg Tablet 800 mg PO TID Qty: 40 0RF hydrocodone-acetaminophen 5-325 mg Tablet 1 tab PO Q4H PRN (Reason: Moderate To Severe Pain) Qty: 30 0RF Continued prenat.vits,haim,sni-dwyp-bcbhj Tablet 1 tab PO DAILY 0RF aspirin 81 mg tablet,delayed release (DR/EC) 81 mg PO DAILY Qty: 90 1RF Rx Instructions: Start at 12 weeks gestation (DME) breast pump [Pump In Style Advanced] Device See Rx Instructions .MEDSUPPLY Qty: 1 0RF Rx Instructions: As directed acetaminophen [Tylenol] 325 mg capsule 325 mg PO QID PRN (Reason: Pain) 0RF ferrous sulfate 325 mg (65 mg iron) tablet,delayed release (DR/EC) 325 mg PO DAILY Qty: 90 0RF promethazine 25 mg tablet 25 mg PO TID PRN (Reason: nausea and vomiting) Qty: 10 0RF Discharge Orders: Discharge Order (Routine); Ordered 09/04/21 Ordered By: Janna Thornton Referrals: Janna Thornton MD [Physician] - 09/08/21 10:00 am ([address] Timmons on 10/17/21 at 11:30am.) Patient Instructions: Depression (DC), Bleeding (DC), Preeclampsia and Eclampsia After Delivery (GEN), COVID-19 and (GEN), OB [facility], OB Discharge Report, OB Food/Drug Interaction Guide, OB Care at Home, Opioid Safety, OB Home Care, OB Proud Parent Packet, Abnormal Bleeding Discharge Attestations Time Spent in Discharge Care*: less than 30 min Quality Metrics Clinical Quality Measures [ No reported AMI, CVA or VTE this stay] Coding Level of Care Code Acute Chg FW DC note Diagnoses macrosomia affecting management of mother, antepartum O36.60X0 chromosome abnormality, antepartum O35.1XX0 History of gestational hypertension Z87.59 Supervision of other normal Z34.80 Severe preeclampsia O14.10
[2021-09-04 16:57] VITALS: BP 119/84; PULSE 70; RESP 16; TEMP 36.4; O2SAT 96
== END 2021-09-04 17:51 | disposition home or self-care (01) | DRG 788 ==
LOC: OPOB 13:45 → OBGYN 13:45
PROVIDERS: Obstetrics & Gynecology; Admitting Provider Obstetrics & Gynecology; PCP Nurse Practitioner; Visit Provider Obstetrics & Gynecology
PROC: 10D00Z1 Extraction of Products of Conception, Low, Open Approach (ICD-10-PCS; CPT 59514; principal; 2021-09-02 14:55)
DX: O14.14 Severe pre-eclampsia complicating childbirth (principal); O33.5XX0 Maternal care for disproportion due to unusually large fetus, not applicable or unspecified; O62.9 Abnormality of forces of labor, unspecified; O36.63X0 Maternal care for excessive fetal growth, third trimester, not applicable or unspecified; O75.89 Other specified complications of labor and delivery; R74.8 Abnormal levels of other serum enzymes; O99.284 Endocrine, nutritional and metabolic diseases complicating childbirth; E28.2 Polycystic ovarian syndrome; O90.89 Other complications of the puerperium, not elsewhere classified; R21 Rash and other nonspecific skin eruption; O35.1XX0 Maternal care for (suspected) chromosomal abnormality in fetus, not applicable or unspecified; Z37.0 Single live birth; Z3A.38 38 weeks gestation of pregnancy; Z79.82 Long term (current) use of aspirin; Z86.16 Personal history of COVID-19
CPT/HCPCS: 36415; 51702; 59025; 59409; 80053; 81001; 82570; 83735; 84156; 84550; 85025; 85027; 87086; 96372; 96374; 96376; 99211; J0690; J1885; J2270; J2274; J2550; J2765; J2795; J3010; J3475; J3490; J7030

== ENCOUNTER → 2021-10-23 12:45 | Outpatient (BNVA) | payer OTHER, MEDICAID, SELFPAY | PROVIDERS: PCP Nurse Practitioner; Visit Provider Obstetrics & Gynecology | DX: Z30.9 Encounter for contraceptive management, unspecified (principal); Z87.59 Personal history of other complications of pregnancy, childbirth and the puerperium; R31.9 Hematuria, unspecified | CPT/HCPCS: 80053; 81003; 81025 ==

== ENCOUNTER → 2021-11-21 12:22 | Outpatient (BNVA) | payer OTHER, MEDICAID, SELFPAY | PROVIDERS: PCP Nurse Practitioner; Visit Provider Obstetrics & Gynecology | DX: Z87.59 Personal history of other complications of pregnancy, childbirth and the puerperium (principal) | CPT/HCPCS: 80053 ==

== ENCOUNTER 2023-06-02 21:47 | Emergency (ER) | payer OTHER, SELFPAY ==
[2023-06-02 21:50] VITALS: BP 123/87; PULSE 81; RESP 16; TEMP 36.8; O2SAT 97; BMI 39.3
--- NOTE | 2023-06-02 21:55 | XRR_ITS ---
PROCEDURE INFORMATION: Exam: XR Right Ankle Exam date and time: 06/02/2023 10:42 PM Age: 27 years old Clinical indication: Injury or trauma; Fall; Sprain or strain; Ankle; Right TECHNIQUE: Imaging protocol: Radiologic exam of the right ankle. Views: 3 or more views. COMPARISON: No relevant prior studies available. FINDINGS: Bones/joints: Fibular tip minimally displaced avulsion fracture suspected. Distal Achilles tendon degenerative calcification. Small calcified heel spur. Soft tissues: Soft tissue swelling over the lateral malleolus. XR/XR ankle RT min 3V* [id number] IMPRESSION: 1. Fibular tip minimally displaced avulsion fracture suspected. 2. Distal Achilles tendon degenerative calcification. 3. Small calcified heel spur. 4. Soft tissue swelling over the lateral malleolus.
--- NOTE | 2023-06-02 22:09 | PC.NURSE ---
PT STATES SHE WAS WALKING DOWN SOME STAIRS WHEN SHE LOST HER FOOTING AND FELL DOWN 4 STAIRS. PT STATES SHE FELL ON HER LEFT ANKLE AND HEARD A POP. PT STATES SHE HAS BEEN UNABLE TO BEAR WEIGHT SINCE. PT DENIES ANY OTHER TRAUMA OR INJURY AT THIS TIME. PTS ANKLE APPEARS SWOLLEN AND HAS BRUISING TO THE OUTER SIDE OF FOOT. PT STATES SHE TOOK A HYDROCODONE AT 1600 BUT RATES HER CURRENT PAIN 8/10. PT IS ALERT AND ORIENTED WITH EVEN, UNLABORED RESPIRATIONS WITH PATENT AIRWAY.
[2023-06-02] MEDS: ketorolac 60 mg/2 mL INJ IM (22:16)
--- NOTE | 2023-06-02 22:59 | XRR_ITS ---
PROCEDURE INFORMATION: Exam: XR Right Foot Exam date and time: 06/03/2023 12:05 AM Age: 27 years old Clinical indication: Injury or trauma; Fall; Fracture, traumatic; Closed fracture; Metatarsal; Right; Fifth; Additional info: Injury, 5th metatarsal fracture seen on ankle XR. Eval for any TECHNIQUE: Imaging protocol: Radiologic exam of the right foot. Views: 3 or more views. COMPARISON: CR (LOW EXM, ) 06/02/2023 10:42 PM FINDINGS: Bones/joints: Fifth metatarsal mid to distal diaphyseal oblique displaced fracture. Calcified heel spur. Distal Achilles tendon degenerative calcification. Possible fibular tip small avulsion fracture. Soft tissues: Normal. XR/XR foot RT min 3V* [id number] IMPRESSION: 1. Fifth metatarsal mid to distal diaphyseal oblique displaced fracture. 2. Calcified heel spur. 3. Distal Achilles tendon degenerative calcification. 4. Possible fibular tip small avulsion fracture.
[2023-06-02] MEDS: HYDROcodone-acetaminophen 5-325 mg Tablet 1 TAB PO (23:08)
--- NOTE | 2023-06-02 23:15 | W.ED.EXTPRO ---
Documented by User: JOAQUIN Castro 06/03/23 01:00 HPI - Extremity Problem General: Chief complaint: Extremity Injury, Lower Stated complaint: right foot injury Time Seen by Provider: 06/02/23 22:06 Source: patient Mode of arrival: wheelchair Limitations: no limitations History of Present Illness: Patient presents emergency department today accompanied by her for evaluation treatment of right ankle and foot pain. Patient states that she was coming down off of her porch and tripped on approximately 4 steps. Patient twisted her foot and twisted her ankle in an inverted fashion. She states since that time she has been unable to bear weight on the right foot and ankle due to her pain. She comes in using a set of borrowed crutches to assist with ambulation. She took a [place] at approximately 4 PM. No previous injuries to the right foot or ankle per her report. Review of Systems General: Reports: 10 or more systems reviewed and unremarkable except in HPI and below PFSH ED PFSH: Medical History PCOS (polycystic ovarian syndrome) Diagnosed in 2019 with irregular cycles and ultrasound. No pertinent past medical history Denies diabetes, asthma, hypertension, seizures, DVT/PE PMD: [place] [facility] History Status post delivery 09/02/2021---primary low transverse delivery with double layer closure performed for arrest of dilation and macrosom[place] [facility] History of cholecystectomy (2015) Laparoscopic procedure performed at [facility]. Rojo. Family History Father Diabetes Hyperlipidemia Hypertension Grandmother Heart disease Maternal grandmother Ovarian cancer Paternal, age at diagnosis unknown Denies family history of Colon cancer Breast cancer Uterine cancer Thyroid disease Stroke Social History Smoking and tobacco/nicotine status: never used tobacco/nicotine Second hand smoke exposure: No Alcohol intake: current Alcohol intake frequency: holidays/special occasions only Substance/Drug Use: never Lives independently: Yes Household members: spouse Housing: House Marital status: Number of children: 2 Female Reproductive History: Date of last menstrual period: 06/02/23 Para: 2 Physical Exam Const: COMMON NORMALS: no acute distress, patient oriented x3 and alert HENMT: COMMON NORMALS: normocephalic, atraumatic and hearing grossly normal bilaterally HEAD & SCALP: normocephalic and atraumatic Eye: COMMON NORMALS: Equal, round and reactive pupils present, EOMs intact bilaterally and conjunctivae normal CONJUNCTIVA: Yes conjunctivae normal PUPIL: Yes Equal, round and reactive pupils present Neck/C-Spine: COMMON NORMALS: full ROM and no JVD Lymph: LYMPHATIC: no lymphadenopathy noted Resp: COMMON NORMALS: normal respiratory effort, No retractions and No use of accessory muscles Cardio: COMMON NORMALS: no JVD and regular rate RATE: regular rate Extremity: NARRATIVE EXTREMITY EXAM: Patient has obvious swelling over the right lateral malleolus and across the lateral portion of the right foot. There is also bruising proceeded along the lateral portion of the right midfoot and distal foot affecting the fifth MTP joint. Patient is unable to bear weight but is able to wiggle her toes. Neuro: COMMON NORMALS: patient oriented x3 SENSORIUM/ORIENTATION: Yes alert Psych: COMMON NORMALS: mental status grossly normal, Normal thought process present, cooperative and normal affect THOUGHT PROCESS: Normal thought process present Skin: COMMON NORMALS: no rashes or lesions noted and turgor normal GENERAL SKIN EXAM: no rashes or lesions noted and turgor normal OTHER: Patient with obvious bruising and edema noted to the right lateral ankle and lateral foot. Course Vital Signs: Vital signs: Vital Signs Temperature 98.2 F 06/02/23 21:50 Pulse Rate 81 06/02/23 21:50 Respiratory Rate 16 06/02/23 21:50 Blood Pressure 123/87 06/02/23 21:50 Pulse Oximetry 97 06/02/23 21:50 Oxygen Delivery Me thod Room Air 06/02/23 21:50 MDM - Extremity (Nontraumatic) Medical Decision Making Patient presented to the emergency department today for evaluation treatment of right foot and ankle injury from falling off her porch. Initially, x-ray from triage was taken of the ankle which I was suspicious there was a small avulsion fracture of the distal fibula however, I noticed a fracture of the fifth metatarsal region. However, the ankle x-ray does not fully evaluate the extent of this area and did request a foot x-ray for better observation of the metatarsals. Foot x-ray confirms a displaced shaft fracture of the fifth metatarsal. No other signs of metatarsal fracture. Radiology also agreed with the distal fibula avulsion. I discussed all these findings with the patient. Patient was put into a posterior splint and given crutches. She is to remain 100% nonweightbearing until she is seen and evaluated by orthopedics. I placed a referral on her behalf to orthopedics for this follow-up. Patient was given instructions to keep foot up and elevated. She was given a short course of pain medication by Dr. Fried at discharge. This patient was originally seen by Mrs. Flaquito PA-C.? I agree with her history, evaluation, and treatment. Differential Diagnosis Unlikely herpes zoster, gout, cellulitis, superficial thrombophlebitis, lower extremity edema or deep vein thrombosis of lower extremity Lab Data Radiology Impressions Ankle X-Ray 06/02/23 21:55 IMPRESSION: 1. Fibular tip minimally displaced avulsion fracture suspected. 2. Distal Achilles tendon degenerative calcification. 3. Small calcified heel spur. 4. Soft tissue swelling over the lateral malleolus. ADDENDUM: 06/02/23 2320 Fifth metatarsal fracture somewhat visualized, better seen on same-day foot radiograph. Foot X-Ray 06/02/23 22:59 IMPRESSION: 1. Fifth metatarsal mid to distal diaphyseal oblique displaced fracture. 2. Calcified heel spur. 3. Distal Achilles tendon degenerative calcification. 4. Possible fibular tip small avulsion fracture. All radiology interpretation(s) finalized by discharge Discharge Plan Discharge Patient Disposition: Home Clinical Impression: Closed avulsion fracture of distal end of right fibula Qualifiers: Encounter type: initial encounter Qualified Code(s): S82.831A - Other fracture of upper and lower end of right fibula, initial encounter for closed fracture Metatarsal fracture Qualifiers: Encounter type: initial encounter Metatarsal bone: fifth Fracture type: closed Fracture alignment: displaced Laterality: right Qualified Code(s): S92.351A - Displaced fracture of fifth metatarsal bone, right foot, initial encounter for closed fracture Condition: Stable Prescriptions: New naproxen 500 mg tablet 500 mg PO BID PRN (Reason: pain) Qty: 20 0RF hydrocodone-acetaminophen 5-325 mg tablet 1 tab PO Q8H PRN (Reason: pain) Qty: 10 0RF No Action acetaminophen [Tylenol] 325 mg capsule 325 mg PO QID PRN (Reason: Pain) duloxetine 30 mg capsule,delayed release(DR/EC) 30 mg PO BID Qty: 180 1RF dexlansoprazole [Dexilant] 30 mg capsule,biphase delayed releas 30 mg PO DAILY Qty: 90 1RF Ozempic 0.25 mg or 0.5 mg (2 mg/3 mL) pen injector 0.5 mg SUBCUT Q7D 28 Days Qty: 3 3RF prednisone 20 mg tablet 40 mg PO DAILY 5 Days Qty: 10 0RF ibuprofen 800 mg tablet 800 mg PO TID PRN (Reason: pain) Qty: 30 0RF Discharge Orders: Discharge ED (Routine); Ordered 06/02/23 Ordered By: iBllie Huddleston Referrals: Lawrence Vidales MD [Primary Care Provider] - Discharge Diet: Usual diet Patient Instructions: Ankle Fracture (ED), Foot Fracture in Adults (ED) Activity Restrictions/Additional Instructions: X-rays today show a small avulsion fracture of the distal end of your right fibula. However, you have a more significant fracture of your fifth metatarsal which is somewhat and displaced. We are placing you into a splint which needs to remain in place, clean, and dry. We are also giving you crutches as you need to remain 100% nonweightbearing on your right extremity. I have requested a follow-up appointment with orthopedics for further evaluation and continued monitoring of your healing. Is much as possible, keep your foot up and elevated throughout the day as swelling will worsen with gravity the more you are up and active. The emergency room physician here today is providing you a short course of some pain medication-if you are able to tolerate discomfort through the day with Tylenol and ibuprofen, you may wish to save the pain medication for before bed to allow you to rest. Coding Level of Care Code ED Section Maintainer for Nolberto Villafana Documented by User: Tremayne Fried DO 06/03/23 06:06 HPI - Extremity Problem General: Chief complaint: Extremity Injury, Lower Stated complaint: right foot injury Time Seen by Provider: 06/02/23 22:06 [facility] ED PFSH: Medical History PCOS (polycystic ovarian syndrome) Diagnosed in 2019 with irregular cycles and ultrasound. No pertinent past medical history Denies diabetes, asthma, hypertension, seizures, DVT/PE PMD: [place] [facility] History Status post delivery 09/02/2021---primary low transverse delivery with double layer closure performed for arrest of dilation and macrosomia by Dr. Graves [place] [facility] [place] History of cholecystectomy (2015) Laparoscopic procedure performed at [facility]. Rojo. Family History Father Diabetes Hyperlipidemia Hypertension Grandmother Heart disease Maternal grandmother Ovarian cancer Paternal, age at diagnosis unknown Denies family history of Colon cancer Breast cancer Uterine cancer Thyroid disease Stroke Social History Smoking and tobacco/nicotine status: never used tobacco/nicotine Second hand smoke exposure: No Alcohol intake: current Alcohol intake frequency: holidays/special occasions only Substance/Drug Use: never Lives independently: Yes Household members: spouse Housing: House Marital status: Number of children: 2 Course Vital Signs: Vital signs: Vital Signs Temperature 98.2 F 06/02/23 21:50 Pulse Rate 81 06/02/23 21:50 Respiratory Rate 16 06/02/23 21:50 Blood Pressure 123/87 06/02/23 21:50 Pulse Oximetry 97 06/02/23 21:50 Oxygen Delivery Me thod Room Air 06/02/23 21:50 MDM - Extremity (Nontraumatic) Medical Decision Making This patient was originally seen by Mrs. Flaquito PA-C.? I agree with her history, evaluation, and treatment. Lab Data Radiology Impressions Ankle X-Ray 06/02/23 21:55 IMPRESSION: 1. Fibular tip minimally displaced avulsion fracture suspected. 2. Distal Achilles tendon degenerative calcification. 3. Small calcified heel spur. 4. Soft tissue swelling over the lateral malleolus. ADDENDUM: 06/02/23 2320 Fifth metatarsal fracture somewhat visualized, better seen on same-day foot radiograph. Foot X-Ray 06/02/23 22:59 IMPRESSION: 1. Fifth metatarsal mid to distal diaphyseal oblique displaced fracture. 2. Calcified heel spur. 3. Distal Achilles tendon degenerative calcification. 4. Possible fibular tip small avulsion fracture. Discharge Plan Discharge Patient Disposition: Home Clinical Impression: Closed avulsion fracture of distal end of right fibula Qualifiers: Encounter type: initial encounter Qualified Code(s): S82.831A - Other fracture of upper and lower end of right fibula, initial encounter for closed fracture Metatarsal fracture Qualifiers: Encounter type: initial encounter Metatarsal bone: fifth Fracture type: closed Fracture alignment: displaced Laterality: right Qualified Code(s): S92.351A - Displaced fracture of fifth metatarsal bone, right foot, initial encounter for closed fracture Condition: Stable Prescriptions: New naproxen 500 mg tablet 500 mg PO BID PRN (Reason: pain) Qty: 20 0RF hydrocodone-acetaminophen 5-325 mg tablet 1 tab PO Q8H PRN (Reason: pain) Qty: 10 0RF No Action acetaminophen [Tylenol] 325 mg capsule 325 mg PO QID PRN (Reason: Pain) duloxetine 30 mg capsule,delayed release(DR/EC) 30 mg PO BID Qty: 180 1RF dexlansoprazole [Dexilant] 30 mg capsule,biphase delayed releas 30 mg PO DAILY Qty: 90 1RF Ozempic 0.25 mg or 0.5 mg (2 mg/3 mL) pen injector 0.5 mg SUBCUT Q7D 28 Days Qty: 3 3RF prednisone 20 mg tablet 40 mg PO DAILY 5 Days Qty: 10 0RF ibuprofen 800 mg tablet 800 mg PO TID PRN (Reason: pain) Qty: 30 0RF Discharge Orders: Discharge ED (Routine); Ordered 06/02/23 Ordered By: Billie Huddleston Referrals: Lawrence Vidales MD [Primary Care Provider] - Discharge Diet: Usual diet Patient Instructions: Ankle Fracture (ED), Foot Fracture in Adults (ED) Activity Restrictions/Additional Instructions: X-rays today show a small avulsion fracture of the distal end of your right fibula. However, you have a more significant fracture of your fifth metatarsal which is somewhat and displaced. We are placing you into a splint which needs to remain in place, clean, and dry. We are also giving you crutches as you need to remain 100% nonweightbearing on your right extremity. I have requested a follow-up appointment with orthopedics for further evaluation and continued monitoring of your healing. Is much as possible, keep your foot up and elevated throughout the day as swelling will worsen with gravity the more you are up and active. The emergency room physician here today is providing you a short course of some pain medication-if you are able to tolerate discomfort through the day with Tylenol and ibuprofen, you may wish to save the pain medication for before bed to allow you to rest. Coding Level of Care Code ED Section Maintainer for Nolberto Villafana
--- NOTE | 2023-06-03 08:11 | DCPLANNER ---
Message was sent to ortho clinic on 06/02/23 at 0813. Clinic to contact patient.
== END 2023-06-02 23:47 | disposition home or self-care (01) ==
PROVIDERS: Emergency Provider Physician Assistant; PCP Family Medicine
DX: S82.831A Other fracture of upper and lower end of right fibula, initial encounter for closed fracture (principal); S92.351A Displaced fracture of fifth metatarsal bone, right foot, initial encounter for closed fracture; X50.1XXA Overexertion from prolonged static or awkward postures, initial encounter
CPT/HCPCS: 29515; 73610; 73630; 96372; 99284; E0114; J1885

== ENCOUNTER 2023-06-07 09:08 | Day surgery (SDC) | payer OTHER, SELFPAY ==
[2023-06-07] VITALS (7 sets, daily range): BP systolic 90–137; BP diastolic 50–96; PULSE 64–88; RESP 14–18; TEMP 36.1–36.7; O2SAT 96–100; BMI 39.3
--- NOTE | 2023-06-07 | XR_ITS ---
WS: [id number] Right foot, C-arm fluoroscopy, 06/07/2023 Clinical Data: ORIF 5 METATARSAL FUSION, OR PIC Comparison: Right foot, 06/03/2023 Findings: There are 3 small orthopedic screws reducing the fracture of the distal right fifth metatarsal. Impression: Internal fixation of right fifth metatarsal fracture.
[2023-06-07] MEDS: sodium chloride 0.9% 1,000 ML 30 ML IV (09:46)
[2023-06-07 10:04] LABS: OR HCG Qualitative Urine Negative (Negative)
--- NOTE | 2023-06-07 13:01 | W.PM.OPSUD ---
Surgery/Procedure H&P Update DATE OF PROCEDURE: June 07, 2023 DATE H&P PERFORMED: 06/03/23 H&P UPDATE INFORMATION: I have reviewed H&P completed within last 30 days, I have examined patient prior to procedure, No changes to prior documentation and H&P is in [facility] EMR on date indicated PREOP DIAGNOSIS: Right fifth metatarsal fracture PLANNED PROCEDURE: Operation Date: 06/07/23 10:55 Proposed Procedures p ?Open reduction internal fixation right fifth metatarsal 27352,S92.351A(Right) - Jourdan Benson DPM
[2023-06-07] MEDS: ceFAZolin 2,000 MG in sodium chloride 0.9% (plus) 50 ML 100 MG IV (13:15)
--- NOTE | 2023-06-07 13:19 | ANES.PREANE2 ---
Pre-Anesthetic Assessment Height/Weight: Height 1.63 m Weight 103.873 kg Temp Pulse Resp BP Pulse Ox O2 Del Method 98.1 F 88 18 137/96 100 Room Air 06/07/23 09:42 06/07/23 09:42 06/07/23 09:42 06/07/23 09:42 06/07/23 09:42 06/07/23 10:02 Preop Diagnosis: Right fifth metatarsal fracture Operation Date: 06/07/23 10:55 Proposed Procedures p ?Open reduction internal fixation right fifth metatarsal 52875,S92.351A(Right) - Jourdan Benson DPM Familial anesthetic complications: none Was Beta Mukund taken within 24 hours: N/A Was Clonidine taken within 24 hours: N/A Last intake: Intake Last Liquid Date 06/06/23 Last Liquid Time 23:00 Last Solid Date 06/06/23 Last Solid Time 18:30 Social No alcohol and No tobacco Exam alert, oriented x 3, clear to auscultation bilaterally and regular rate & rhythm Airway Submandibular: within normal limits Cervical ROM: within normal limits Mallampati: Class II Dentition: full GI Gastroesophageal Reflux Disease Metabolic Morbid Obesity Neuropsych Anxiety and Depression Anesthetic Plan ASA status: 2 Anesthesia: General Medications/Allergies Home Medications Medication Instructions Recorded Confirmed Last Taken Type acetaminophen 325 mg capsule 325 mg PO QID PRN Pain 10/21/19 06/07/23 09/01/21 09:00 History (Tylenol) duloxetine 30 mg capsule,delayed 30 mg PO BID #180 caps 01/04/23 06/06/23 06/06/23 Rx release ibuprofen 800 mg tablet 800 mg PO TID PRN pain #30 tabs 04/18/23 06/06/23 06/06/23 Rx hydrocodone 5 mg-acetaminophen 325 1 tab PO Q8H PRN pain #10 tabs 06/02/23 06/07/23 Unknown Rx mg tablet naproxen 500 mg tablet 500 mg PO BID PRN pain #20 tabs 06/02/23 06/07/23 Unknown Rx Allergies Allergy/AdvReac Type Severity Reaction Status Date / Time Penicillins Allergy Intermediate Swelling Verified 06/07/23 09:54 in hands and lips---can take Keflex sulfamethoxazole Allergy Intermediate swell, Verified 06/07/23 09:54 [From Bactrim] hands and lips trimethoprim [From Bactrim] Allergy Intermediate alex, Verified 06/07/23 09:54 hands and lips Current Medications Generic Name Dose Route Start Last Admin Trade Name Kimberly PRN Reason Stop Dose Admin Sodium Chloride 1,000 mls @ 30 mls/hr 06/07/23 09:30 06/07/23 09:46 Sodium Chloride 0.9% IV 06/08/23 09:29 30 mls/hr .Q24H PEPE Administration PFSH Anesthesia Medical History PCOS (polycystic ovarian syndrome) Diagnosed in 2019 with irregular cycles and ultrasound. No pertinent past medical history Denies diabetes, asthma, hypertension, seizures, DVT/PE PMD: [place] [facility] History Status post delivery 09/02/2021---primary low transverse delivery with double layer closure performed for arrest of dilation and macrosomia by Dr. Graves at [facility] [place]. History of cholecystectomy (2015) Laparoscopic procedure performed at [facility] [place] by Dr. Rooj. Family History Father Diabetes Hyperlipidemia Hypertension Grandmother Heart disease Maternal grandmother Ovarian cancer Paternal, age at diagnosis unknown Denies family history of Colon cancer Breast cancer Uterine cancer Thyroid disease Stroke Social History Smoking and tobacco/nicotine status: never used tobacco/nicotine Second hand smoke exposure: No Alcohol intake: current Alcohol intake frequency: holidays/special occasions only Substance/Drug Use: never Lives independently: Yes Household members: spouse Housing: House Marital status: Number of children: 2 Female Reproductive History Para: 2 Data Anesthesia Cardiac Studies: No Data to Display
[2023-06-07] MEDS: BUPivacaine liposome 13.3 mg/mL SDV 10 mL 133 MG INFILTRATI (13:38)
[2023-06-07] MEDS: BUPivacaine 0.5% INJ 30 mL XX (13:38)
--- NOTE | 2023-06-07 13:54 | P.BOP_ITS ---
Date of Procedure: 06/07/23 Surgeon: Jourdan Benson DPM Flour Blender(s): Star Procedure(s) performed: Open reduction internal fixation right fifth metatarsal fracture Findings of the procedure(s): None Estimated blood loss: 2 cc Specimen(s) removed: None Post-operative diagnosis: Right fifth metatarsal fracture. No complications.
--- NOTE | 2023-06-07 14:41 | ANE.PACU2 ---
Inpatient post-anesthesia follow up: Airway intact: Yes Vital signs: Temperature 97.2 F Pulse Rate 64 Respiratory Rate 18 Blood Pressure 103/76 Pulse Oximetry 98 Oxygen Delivery Me thod Room Air Oxygen Flow Rate 6 Fraction of Inspir ed Oxygen Hydration adequate: Yes Nausea and vomiting: No Pain level: 2 Mental status: Baseline
[2023-06-07] MEDS: HYDROcodone-acetaminophen 5-325 mg Tablet 1 TAB PO (14:47)
--- NOTE | 2023-06-07 16:09 | PM.OP ---
Operative Report Date of procedure: June 07, 2023 Pre-op diagnosis: Right fifth metatarsal fracture Post-op diagnosis: Right fifth metatarsal fracture Procedure done: Open reduction internal fixation right fifth metatarsal. CPT code 59656 Implants: [place] 2.0 mm screws x 3 Specimens removed/disposition: None Surgeon: Jourdan Benson DPM Gas Engine Performance Engineer: See intraoperative documentation Estimated blood loss: 2 See intraoperative documentation IV fluids: 0 Urine output: 0 Complications: None Brief History: I reviewed at length with the patient, the risks, potential complications, benefits, alternatives, expectations, and typical outcomes associated with the surgery. The risks and potential complications were explained in detail, including but not limited to infection, wound dehiscence or soft tissue complications, bleeding and hematoma, chronic edema, neuritis or nerve damage producing numbness or chronic pain, CRPS, failure to relieve pain or worsening pain, thick / painful / unsightly scar, limited motion / stiffness, malposition, delayed union, malunion, or nonunion, fracture, reaction to implants, anesthetic complications, venous thromboembolism, and deformity recurrence. I discussed the notion of no regrets with the patient as it pertains to complications and outcomes. The patient seemed to understand the nature of the proposed care and required convalescence. They asked appropriate questions, answered to their satisfaction. They are aware no guarantees can be made as to a satisfactory outcome and they understand there may be other possible unforeseen complications or outcomes not listed here that will be treated accordingly if they arise. There were no written or implied guarantees given to the patient. They gave informed consent to proceed. Procedure: Under mild sedation the patient was brought to the operating room and remained on the gurney in supine position. A timeout was performed. Anesthesia was then administered by the anesthesia service. Local anesthesia injected by myself consisting of 20 cc of 0.5 to Marcaine plain in a reverse block fashion and 10 cc of Exparel subcutaneously at the operative site. Well-padded pneumatic tourniquet applied to the right ankle. The right lower extremity was scrubbed, prepped and draped utilizing normal aseptic technique. Right foot was exanguinated with an Esmarch bandage and tourniquet inflated to 250 mmHg. Attention was directed to the lateral aspect of the right foot where a linear longitudinal incision was made starting at the head of the fifth metatarsal coursing proximally through skin with #15 blade. Dissection was carried down to the layer of periosteum utilizing sharp and blunt technique. Care was taken to retract and preserve neurovascular and tendinous structures. All bleeders were ligated and cauterized as necessary. Periosteal incision was made and the fracture was distracted and curettage of hematoma followed by saline flush, this was then reduced and fixated utilizing standard AO technique, fixated with screw fixation x 3 provided by Calin 28 these were 2 mm cannulated screws perpendicular to the fracture with excellent bony apposition and compression noted. AP, oblique and lateral view intraoperatively with C arm confirmed that screw fixation was appropriate, fracture was reduced and no adjacent joints or bones were violated. The incision was irrigated with saline solution and deep tissues were closed with 4-0 Vicryl, skin with 4-0 nylon. Incision was dressed with Adaptic, sterile 4 x 4's, Kerlix and Bryson wrap followed by application of a cam boot to the right foot. Tourniquet was deflated and a prompt hyperemic response was noted to the distal digits of the right foot. Patient tolerated the procedure and anesthesia well and was transferred to the PACU with vital signs stable and vascular status intact. Following a period of postoperative monitoring she will be discharged home is to be protected weightbearing as tolerated with a cam boot. Elevate right foot while resting. Was given at home care instructions, scheduled follow-up and my cell phone number to contact with any postoperative questions or concerns.
== END 2023-06-07 15:00 | disposition home or self-care (01) ==
PROVIDERS: Anesthesiology; PCP Family Medicine; Visit Provider Podiatrist Foot & Ankle Surgery
PROC: (CPT 28485; principal; 2023-06-07 10:45)
DX: S92.351A Displaced fracture of fifth metatarsal bone, right foot, initial encounter for closed fracture (principal); W01.0XXA Fall on same level from slipping, tripping and stumbling without subsequent striking against object, initial encounter; K21.9 Gastro-esophageal reflux disease without esophagitis; E66.01 Morbid (severe) obesity due to excess calories; Z68.39 Body mass index [BMI] 39.0-39.9, adult; E28.2 Polycystic ovarian syndrome
CPT/HCPCS: 28485; 73620; 76000; 81025; 84703; C1713; C9290; J0690; J2250; J2704; J3010; J3490; J7030

== ENCOUNTER → 2023-06-20 13:45 | Outpatient (BNVA) | payer OTHER, SELFPAY | PROVIDERS: PCP Family Medicine; Visit Provider Podiatrist Foot & Ankle Surgery | DX: S92.351D Displaced fracture of fifth metatarsal bone, right foot, subsequent encounter for fracture with routine healing; S82.831D Other fracture of upper and lower end of right fibula, subsequent encounter for closed fracture with routine healing; X58.XXXD Exposure to other specified factors, subsequent encounter | CPT/HCPCS: 73630 ==

== ENCOUNTER → 2023-07-04 14:53 | Outpatient (BNVA) | payer OTHER, SELFPAY | PROVIDERS: PCP Family Medicine; Visit Provider Podiatrist Foot & Ankle Surgery | DX: Z98.890 Other specified postprocedural states; S92.354D Nondisplaced fracture of fifth metatarsal bone, right foot, subsequent encounter for fracture with routine healing; S99.921D Unspecified injury of right foot, subsequent encounter; S82.831D Other fracture of upper and lower end of right fibula, subsequent encounter for closed fracture with routine healing; X58.XXXD Exposure to other specified factors, subsequent encounter | CPT/HCPCS: 73630 ==

== ENCOUNTER → 2023-07-18 14:05 | Outpatient (BNVA) | payer OTHER, SELFPAY | PROVIDERS: PCP Family Medicine; Visit Provider Podiatrist Foot & Ankle Surgery | DX: Z98.890 Other specified postprocedural states; S92.351D Displaced fracture of fifth metatarsal bone, right foot, subsequent encounter for fracture with routine healing; X58.XXXD Exposure to other specified factors, subsequent encounter | CPT/HCPCS: 73630 ==

== ENCOUNTER → 2023-12-24 14:52 | Outpatient (BNVA) | payer OTHER, SELFPAY | PROVIDERS: PCP Family Medicine; Visit Provider Obstetrics & Gynecology | DX: Z01.419 Encounter for gynecological examination (general) (routine) without abnormal findings (principal) | CPT/HCPCS: 87624 ==

== ENCOUNTER → 2024-02-11 17:46 | Outpatient (BNVA) | payer OTHER, SELFPAY | PROVIDERS: PCP Family Medicine; Visit Provider Nurse Practitioner | DX: R39.9 Unspecified symptoms and signs involving the genitourinary system (principal) | CPT/HCPCS: 81003; 87086 ==

== ENCOUNTER → 2024-02-17 11:08 | Outpatient (BNVA) | payer OTHER, SELFPAY | PROVIDERS: PCP Family Medicine; Visit Provider Podiatrist Foot & Ankle Surgery | DX: S97.81XA Crushing injury of right foot, initial encounter (principal); X58.XXXA Exposure to other specified factors, initial encounter | CPT/HCPCS: 73630 ==

== ENCOUNTER → 2024-11-06 09:14 | Outpatient (BNVA) | payer SELFPAY | PROVIDERS: PCP Family Medicine; Visit Provider Family Medicine | DX: Z90.3 Acquired absence of stomach [part of] (principal) | CPT/HCPCS: 80053; 82306; 82607; 84439; 84443; 85025 ==